=== PATIENT | male | born 1975 | race Caucasian/White ===

== ENCOUNTER 2022-10-23 14:50 | Outpatient (CLI) | payer OTHER ==
[2022-10-23 16:55] LABS: Hematocrit 45.9 % (38.8-50.0); Hemoglobin 15.4 g/dL (13.5-17.5); Mean Corpuscular HGB CONC 33.6 g/dL (32.0-36.0); Mean Corpuscular Hemoglobin 29.9 pg (27.0-33.0); Mean Corpuscular Volume 89.1 fl (81.2-95.1); Mean Platelet Volume 9.3 fl (7.4-10.4); Platelet Count 292 10x3/uL (150-450); RBC Distribution Width 12.1 % (11.5-14.5); Red Blood Cell (RBC) Count 5.15 10x6/uL (4.32-5.72); White Blood Cell (WBC) Count 7.6 10x3/uL (3.5-10.5)
[2022-10-23 16:59] LABS: PTT 28.2 sec (22.0-33.0); Prothrombin Time 10.5 sec (9.5-12.1)
[2022-10-23 17:29] LABS: Anion Gap 16 mmol/L (10-20); BUN (Urea Nitrogen) 19 mg/dL (8.9-20.6); Calc. Creatinine Clearance 0 mL/min (70-130); Calcium 9.8 mg/dL (7.8-10.44); Carbon Dioxide 26 mmol/L (22-29); Chloride 103 mmol/L (98-107); Estimated GFR 74; Glucose 88 mg/dL (70-105); Potassium 4.4 mmol/L (3.5-5.1); Sodium 141 mmol/L (136-145)
== END 2022-10-23 14:51 | disposition home or self-care (01) ==
LOC: LABBT 14:50
PROVIDERS: ATTEND Urology
DX: Z01.818 Encounter for other preprocedural examination (principal); N20.2 Calculus of kidney with calculus of ureter; R35.0 Frequency of micturition
CPT/HCPCS: 80048; 85027; 85610; 85730; 93005; 93010

== ENCOUNTER 2022-10-24 06:45 | Day surgery (SDC) | payer OTHER ==
[2022-10-23 15:49] VITALS: BMI 31.7
[2022-10-24] MEDS ORDERED: Lidocaine 1% MPF 2 ML VIAL ONE (07:34)
[2022-10-24] MEDS ORDERED: LevoFLOXacin 500 mg/D5W 100 ML BAG ONE (08:19)
[2022-10-24] MEDS ORDERED: Iopamidol 15 ML ONE (08:28)
[2022-10-24] MEDS ORDERED: SUGAMMADEX SODIUM 200 MG/2 ML VIAL ONE (08:32)
[2022-10-24] MEDS ORDERED: fentaNYL PF 100 MCG/2 ML SYRINGE ONE (08:32)
[2022-10-24] MEDS ORDERED: HYDROmorphone 0.5 MG/0.5 ML SYRINGE ONE (08:32)
[2022-10-24] MEDS ORDERED: Dexamethasone 20 MG/5 ML VIAL ONE (08:44)
[2022-10-24] MEDS ORDERED: Ketorolac Tromethamine 30 MG/ML VIAL ONE (08:44)
[2022-10-24] MEDS ORDERED: Ondansetron PF 4 MG/2 ML Vial ONE (08:44)
[2022-10-24] MEDS ORDERED: Lidocaine 1% PF 5 ML VIAL ONE (08:44)
[2022-10-24] MEDS ORDERED: Succinylcholine 200 MG/10 ml SYRINGE FS ONE (08:44)
[2022-10-24] MEDS ORDERED: Glycopyrrolate 0.2 MG/ML 5 ML SYRINGE ONE (08:44)
[2022-10-24] MEDS ORDERED: NEOSTIGMINE 3 MG/3 ML SYR 3 MG/3 ML SYRINGE ONE (08:44)
[2022-10-24] MEDS ORDERED: Rocuronium Bromide 10 MG/ML (10ML VIAL) ONE (08:44)
[2022-10-24] MEDS ORDERED: PROPOFOL 200 MG/20 ML VIAL ONE (08:44)
[2022-10-24] MEDS ORDERED: fentaNYL 50 mcg/mL 1 mL Vial ONE (10:11)
[2022-10-24] MEDS ORDERED: Oxybutynin 5 MG TAB ONE (10:23)
[2022-10-24] MEDS ORDERED: Phenazopyridine HCl 100 MG TAB ONE (10:23)
[2022-10-24] MEDS ORDERED: Promethazine HCl 25 MG/ML VIAL ONE (10:52)
== END 2022-10-24 11:38 | disposition home or self-care (01) ==
LOC: SDC 06:45
PROVIDERS: ATTEND Urology
PROC: 0TF78ZZ Fragmentation in Left Ureter, Via Natural or Artificial Opening Endoscopic (ICD-10-PCS; principal; 2022-10-24)
DX: N20.2 Calculus of kidney with calculus of ureter (principal); N21.0 Calculus in bladder; R35.0 Frequency of micturition; I10 Essential (primary) hypertension; J45.909 Unspecified asthma, uncomplicated; K21.9 Gastro-esophageal reflux disease without esophagitis; G47.30 Sleep apnea, unspecified; F41.9 Anxiety disorder, unspecified; Z90.49 Acquired absence of other specified parts of digestive tract; Z79.899 Other long term (current) drug therapy; Z88.7 Allergy status to serum and vaccine
CPT/HCPCS: 74018; 74420; 82365; 88300; C1769; J1100; J1170; J1885; J1956; J2405; J2550; J2704; J3010; Q9967